=== PATIENT | male | born 1995 | race Hispanic/Latino ===

== ENCOUNTER 2022-03-13 16:45 | Emergency (ER) | payer OTHER ==
[~2022-03-13] VITALS: Ht 185.4 cm; Wt 90.7 kg
== END 2022-03-13 21:00 | disposition home or self-care (01) ==
LOC: ER 20:49
DX: M54.2 Cervicalgia (principal); M54.50 Low back pain, unspecified; X50.0XXA Overexertion from strenuous movement or load, initial encounter
CPT/HCPCS: 72110; 72125; 99283